=== PATIENT | male | born 1965 | race Caucasian/White ===

== ENCOUNTER → 2018-02-04 | Outpatient (REF) | payer OTHER ==
[~2018-02-04] MED LIST: AMLO-111 PO; CARV12.578 PO; DOCO1CAP17 PO; LISI-374 PO; NAPR-1043 PO; PAN40 PO; PER PO
== END ==
LOC: ZZSENDIN 10:03
PROVIDERS: ATTEND Physician Assistant
DX: Z01.818 Encounter for other preprocedural examination (principal)
CPT/HCPCS: 81001

== ENCOUNTER 2018-02-22 00:47 | Inpatient (IN) | payer OTHER ==
[~2018-02-22] VITALS: Ht 188 cm; Wt 119.7 kg
[2018-02-22] VITALS (25 sets, daily range): BP systolic 108–155; BP diastolic 72–99
[~2018-02-22 00:47] MED LIST changes: +ACET-1966 PO; +AMLO-113 PO; +GABA-549 PO
[2018-02-22] MEDS ORDERED: MIDAZOLAM 2 MG/2 ML VIAL IVP PRN (06:00)
[2018-02-22] MEDS ORDERED: NORMOSOL R SOLN(*) 1000 ML BAG 1,000 ML IV PRN (06:00)
[2018-02-22] MEDS ORDERED: FAMOTIDINE 20 MG TAB PO ONE (06:00)
[2018-02-22] MEDS ORDERED: ceFAZolin(*) 2GM/D5W 50ML 50 ML IVPB ONE (06:00)
[2018-02-22] MEDS ORDERED: PREGABALIN 150 MG CAPSULE PO ONE (06:00)
[2018-02-22] MEDS ORDERED: ACETAMINOPHEN 500 MG TAB PO ONE (06:00)
[2018-02-22] MEDS ORDERED: LIDOCAINE/SOD BICARB 8.4% SYR ID ONE (06:00)
[2018-02-22] MEDS ORDERED: ONDANSETRON 4 MG/2 ML VIAL ONE (06:18)
[2018-02-22] MEDS ORDERED: PROPOFOL EMUL(*) 10MG/ML 20 ML 20 ML ONE (06:18)
[2018-02-22] MEDS ORDERED: ROCURONIUM BROM 10 MG/ML 10 ML ONE (06:18)
[2018-02-22] MEDS ORDERED: DEXAMETHASONE SOD PHOS 10MG/ML ONE (06:18)
[2018-02-22] MEDS ORDERED: METOCLOPRAMIDE 10 MG/2 ML SDV ONE (06:18)
[2018-02-22] MEDS ORDERED: LIDOCAINE MPF 1% 5 ML VIAL ONE (06:18)
[2018-02-22] MEDS ORDERED: fentaNYL CITR 250 MCG/5 ML AMP ONE (06:21)
[2018-02-22] MEDS ORDERED: PROPOFOL(*)1000 MG/100 ML VIAL 100 ML ONE (06:26)
[2018-02-22] MEDS ORDERED: THROMBIN (BOVINE) 20,000 UNIT VIAL ONE (06:32)
[2018-02-22] MEDS ORDERED: ceFAZolin(*) 1 GM VIAL 3 GM in NS(*) 0.9% 100 ML BAG 100 ML IVPB ONE (06:45)
[2018-02-22] MEDS ORDERED: SUCCINYLCHOL CHL 200MG/10ML VL ONE (06:48)
[2018-02-22] MEDS ORDERED: LABETALOL HCL 100 MG/20ML VIAL ONE (07:15)
[2018-02-22] MEDS ORDERED: PROPOFOL EMUL(*) 10MG/ML 20 ML 40 ML ONE (08:07)
--- NOTE | 2018-02-22 09:24 | RADIOLOGY IMAGING REPORT ---
[place] [facility] [place] Yohan Schuster : 1965 MR: [id number] V: [id number] EXAM DATE: [id number] ORDERING PHYSICIAN: MAR ZARAGOZA TECHNOLOGIST: Location: [facility] [place] Patient: Yohan Schuster : 1965 Visit/Account:[id number] Date of Sevice: 02/22/2018 Technique: CERVICAL SPINE 1 VIEW HISTORY: C6-7 DISC HERNIATION/FUSION Comparison studies: MRI cervical spine January 19, 2018 FINDINGS: 2 operative fluoroscopic images were obtained of the cervical spine. Surgical instrumentat ion is seen anterior to the C6-C7 level followed by placement of an intervertebral disc spacer and fu enid hardware. Multilevel degenerative changes are again identified. Fluoroscopy time: Not provided IMPRESSION: 1. Intraoperative fluoroscopic radiographs as described above. Please see operative report for furt her details. Report Dictated By: Chris Sunshine DO at 02/22/2018 9:17 AM Report E-Signed By: Chris Sunshine DO at 02/22/2018 9:20 AM WSN:[email or web address]
[2018-02-22] MEDS ORDERED: APAP/HYDROCODONE 325/5 TAB PO PRN (09:50)
[2018-02-22] MEDS ORDERED: diphenhydrAMINE 25 MG CAP PO PRN (09:50)
[2018-02-22] MEDS ORDERED: oxyCODONE HCL 5 MG CAP PO PRN (09:50)
[2018-02-22] MEDS ORDERED: DIAZEPAM 5 MG TAB PO PRN (09:50)
[2018-02-22] MEDS ORDERED: BENZOCAINE/MENTHOL 1 EACH LOZG PO PRN (09:50)
[2018-02-22] MEDS ORDERED: ONDANSETRON 4 MG/2 ML VIAL IVP PRN (09:50)
[2018-02-22] MEDS ORDERED: ACETAMINOPHEN(*)1000 MG/100 ML 100 ML IVPB PRN (09:50)
[2018-02-22] MEDS ORDERED: ACETAMINOPHEN 500 MG TAB PO PRN (09:50)
[2018-02-22] MEDS ORDERED: LR(*) 1000 ML BAG 1,000 ML IV PRN (09:50)
[2018-02-22] MEDS ORDERED: FLUSH 10 ML SYR IVP PRN (09:50)
[2018-02-22] MEDS ORDERED: MAGNESIUM HYDROXIDE* 30ML UDCP PO PRN (09:50)
[2018-02-22] MEDS ORDERED: HYDROmorphone HCL 2 MG/ML SDV IVP PRN (09:50)
[2018-02-22] MEDS ORDERED: BISACODYL 10 MG SUPP PR PRN (09:50)
[2018-02-22] MEDS ORDERED: fentaNYL CITR 100 MCG/2 ML AMP ONE (09:55)
--- NOTE | 2018-02-22 11:18 | Hospitalist Progress Note ---
Subjective Progress Notes Subjective Patient seen post-op. Reviewed PMHx (HTN) and medications (carvedilol, amlodipine, lisinopril). At present he denies any CP/SOB/N/V. Physical Exam Vital Signs Date Time Temp Pulse Resp B/P (MAP) Pulse Ox O2 Delivery O2 Flow Rate FiO2 02/22/18 10:48 96.1 73 16 122/82 (95) 95 Nasal Cannula 3.0 General Appearance: Alert, Awake, Other (he speaks with soft/whisper voice) Cardiovascular: Regular Rate and Rhythm Respiratory: Clear to Auscultation (anteriorly) Assessment and Plan Problems: (1) HTN (hypertension) Status: Chronic Assessment & Plan: Will monitor BPs and resume his medications as needed. KARLOS CHERY MD Feb 22, 2018 11:18
--- NOTE | 2018-02-22 14:07 | OPERATIVE REPORT 1 ---
EVENT DATE: February 22, 2018 SURGEON: Delta France MD ANESTHESIOLOGIST: Ronal Renee MD ANESTHESIA: General endotracheal. COMPUTER LAB PARA PROFESSIONAL: SHERLYN Horta PREOPERATIVE DIAGNOSIS Left C7 radiculopathy with C6-C7 degenerative disk disease. POSTOPERATIVE DIAGNOSIS Left C7 radiculopathy with C6-C7 disk disease. PROCEDURE PERFORMED C6-C7 anterior cervical diskectomy and fusion IV FLUIDS 1300 cc. ESTIMATED BLOOD LOSS 60 cc. IMPLANTS USED 1. 8 mm lordotic medium titanium interbody implant from [employer]. 2. 3.5 mm x 14 mm fixation screws from [employer]. SPECIMENS None. DRAINS 10- Icelandic round Tj-Rocha drain. COMPLICATIONS None. DISPOSITION Post-Anesthesia Care Unit. INDICATIONS FOR SURGERY Mr. Schuster is a 52-year-old male who presented with a complaint of neck and radiating left upper extremity pain. The symptoms radiated into the periscapular region and then down the left posterior tricep dorsal forearm and into the index and long finger of the left hand. He also noted some occasional weakness in that left upper extremity and clumsiness in the left hand. He denied any bowel or bladder discomfort or constitutional symptoms. His physical examination was significant for positive Spurling's maneuver on the left causing radiating symptoms into the periscapular region. Triceps strength was diminished on the left as well at 4/5 compared to 5/5 on the right. All other muscle strength was 5/5 throughout. Light touch sensation was diminished in the left index and long finger and the triceps deep tendon reflex is absent on the left and 1+ on the right. His imaging studies showed multilevel degenerative changes with the most severe collapse seen at C5-C6. When we sent him for an MRI, however, it showed severe neural foraminal narrowing secondary to a large disk osteophyte complex on the left at C6-C7. Secondary to ongoing symptoms and failure of nonsurgical care, Mr. Schuster was offered and elected to undergo C6-C7 anterior cervical diskectomy and fusion. Prior to surgery, I explained in detail to the patient the possible risks of surgery. These risks include bleeding, infection, damage to surrounding structures, swallowing difficulty with possible need for tube feeding, damage to the superior or recurrent laryngeal nerve, spinal fluid leak, meningitis, , blindness, sexual dysfunction, autonomic nerve system dysfunction or other unforeseen medical and surgical complications. An understanding that in general spinal surgery is more predictive at improving extremity discomfort than axial spine pain was stressed. DESCRIPTION OF PROCEDURE On the day of surgery, the patient was met in the preoperative hold area and all questions were answered. The operative site was identified and marked by myself. After succumbing to anesthesia, the patient was positioned in the supine position on a standard OR bed. All bony protuberances and soft tissues were well padded in the standard fashion. Care was taken to maintain appropriate perfusion pressure during anesthesia. Preoperative antibiotics were administered according to the appropriate timing schedule. At the conclusion of the procedure, the sponge and needle counts were correct x2. The arms were loosely secured at the sides and the shoulders were retracted inferiorly with tape. A final time-out was undertaken by members of the operating team to confirm correct patient, correct levels and correct surgery. The patient was then prepped and draped in the standard sterile orthopedic fashion and a left sided transverse incision was made over the anterior neck. Sharp dissection was carried out down to the platysma, which was divided. Hemostasis was achieved and finger dissection was taken medial to the sternocleidomastoid muscle. The finger was used to palpate for the carotid pulse and dissection was taken medial to the carotid sheath. The anterior spine was thus exposed and soft tissues were elevated off the anterior cervical spine in a subperiosteal manner including the longus colli muscles. A lateral radiograph was obtained to confirm correct spinal level. A self-retaining retractor was placed and distracted and a microscope was brought into the field. A #15 blade was used to incise the anterior annulus of the C6-C7 disk. Progressively smaller curettes were used from ventral to dorsal to perform a diskectomy. Once we reached the dorsal third of the disk space, a Cloward procedures analyst was placed and distracted. There was no change in neurophysiologic monitoring. A combination of curettes and the high speed bur were used to take down the posterior osteophyte out to the uncovertebral joints bilaterally. Uncovertebral resection was performed as necessary with a high speed bur. A forward angled Mireille curette was used to dissect through the fibers of the posterior annulus and the PLL. The nerve hook was used to confirm complete dissection through those structures and #1 and #2 Kerrison punch was then used to take down the posterior annulus and the PLL. Bilateral foraminotomies were performed with a Kerrison punch to ensure adequate decompression of the exiting nerve roots on both sides. A nerve hook was passed behind the vertebral bodies to ensure no persistent pressure on the spinal cord and then the nerve hook was also used to check the foramina bilaterally, ensuring no ongoing foraminal narrowing. The endplates were prepared with a high speed bur, feathering the subchondral bone to ensure ingress of bony bleeding. A medium 8 mm 6-degree lordotic rasp was then tapped into place within the interspace and found to have an excellent fit. We, therefore, chose an 8-degree interbody device and after packing it with demineralized bone matrix this was tapped into place and countersunk about 0.5 mm. The awl was used through the integrated holes in the implant to then penetrate the endplates above and below. 3.5 mm x 14 mm screws were placed through the device and into the vertebral bodies of C6 and C7. A final motor was run and there was no change in neurophysiologic monitoring. Lateral radiograph confirmed excellent placement of the device. The wound was then irrigated and closed in layers using inverted interrupted sutures to the subcutaneous tissue and running subcuticular skin stitch. A drain was left deep to the platysma. Sponge and needle counts were correct x2. POSTOPERATIVE CARE PLAN Mr. Schuster will remain in the hospital overnight and will have his drain pulled in the morning and be discharged home. He will follow up with me in two weeks for wound check and examination. MORENITA
[2018-02-22] MEDS ORDERED: GABA-549 PO (15:13)
[2018-02-22] MEDS: ceFAZolin 3 GM in NS 0.9% 100 ML BAG IVPB SCH (17:15)
[2018-02-22] MEDS ORDERED: NS(*) 0.9% 250 ML BAG 250 ML IV PRN (17:20)
[2018-02-22] MEDS: DOCUSATE SODIUM 100 MG CAP PO SCH (20:57)
[2018-02-22] MEDS: GABAPENTIN 300 MG CAP PO SCH (20:57)
[2018-02-22] MEDS: CARVEDILOL 6.25 MG TAB PO SCH (20:58)
[2018-02-22] MEDS ORDERED: GABAPENTIN 300 MG CAP PO SCH (21:00)
[2018-02-23 00:32] VITALS: BP 134/74
[2018-02-23] MEDS: ceFAZolin 3 GM in NS 0.9% 100 ML BAG IVPB SCH ×2 (00:44→08:28)
[2018-02-23 05:16] VITALS: BP 127/88
--- NOTE | 2018-02-23 06:18 | Hospitalist Progress Note ---
Subjective Progress Notes Subjective He reports doing well. He is planning on DC today. Physical Exam Vital Signs Date Time Temp Pulse Resp B/P (MAP) Pulse Ox O2 Delivery O2 Flow Rate FiO2 02/23/18 05:16 98.5 101 16 127/88 (101) 91 Room Air 02/22/18 19:33 3.0 Intake and Output 02/23/18 06:59 Intake Total 4743 ml Output Total 960 ml Balance 3783 ml Intake Oral 2736 ml IV Total 2007 ml Output Urine Total 950 ml Drainage Total 10 ml # Voids 6 General Appearance: Alert, Awake Assessment and Plan Problems: (1) HTN (hypertension) Status: Chronic Assessment & Plan: He will continue his usual regimen with carvedilol, lisinopril, and amlodipine. He will monitor BPs and symptoms at home. He will contact primary care provider if any problems. Exam Sepsis Risk: No Definite Risk KARLOS CHERY MD Feb 23, 2018 06:17
[2018-02-23 07:31] VITALS: BP 173/108
[2018-02-23] MEDS ORDERED: DOCU240C84 PO (07:48)
[2018-02-23] MEDS ORDERED: LOR5/325 PO (07:49)
--- NOTE | 2018-02-23 08:22 | RADIOLOGY IMAGING REPORT ---
FACILITY: [facility] - [place] PATIENT NAME: Yohan Schuster : 1965 MR: [id number] V: [id number] EXAM DATE: ORDERING PHYSICIAN: MAR ZARAGOZA TECHNOLOGIST: Location: [facility] Patient: Yohan Schuster : 1965 Visit/Account:[id number] Date of Sevice: 02/23/2018 Exam type: CERVICAL SPINE 2 OR 3 VIEW History: Post-op Comparison: Intraoperative views of the cervical spine February 22, 2018. Findings: There are postsurgical changes from anterior fusion with intervertebral disc spacer at C6-7. There i s moderate disc space narrowing at C5-6, mild disc space narrowing at C4-5 and C3-4 and C2-3. Anteri or osteophytes are noted at C3-4 C4-5 and C5-6. There is straightening of the normal cervical lordos is. There is no evidence of prevertebral soft tissue swelling IMPRESSION: 1. Postsurgical changes from anterior fusion at C6-7 as described above Report Dictated By: Velma Moreno MD at 02/23/2018 8:15 AM Report E-Signed By: Velma Moreno MD at 02/23/2018 8:17 AM WSN:[email or web address]
[2018-02-23] MEDS: DOCUSATE SODIUM 100 MG CAP PO SCH (08:28)
[2018-02-23] MEDS: GABAPENTIN 300 MG CAP PO SCH (08:28)
[2018-02-23] MEDS: CARVEDILOL 6.25 MG TAB PO SCH (08:28)
[2018-02-23] MEDS ORDERED: amLODIPine BESYL(*) 5 MG TAB PO SCH (09:00)
[2018-02-23] MEDS ORDERED: LISINOPRIL 20 MG TAB PO SCH (09:00)
== END 2018-02-23 09:25 | disposition home or self-care (01) | DRG 473 ==
LOC: OR 00:47 → OBSVTOIN 10:45 → UNDOADMOB 10:45 → INTOOBSV 10:45 → MED 10:45 → UNDODISIN 02-23 09:25
PROVIDERS: ADMIT Orthopaedic Surgery; ATTEND Orthopaedic Surgery
PROC: 0RT30ZZ Resection of Cervical Vertebral Disc, Open Approach (ICD-10-PCS; 2018-02-22)
PROC: 0RG10A0 Fusion of Cervical Vertebral Joint with Interbody Fusion Device, Anterior Approach, Anterior Column, Open Approach (ICD-10-PCS; principal; 2018-02-22 07:11)
DX: M50.123 Cervical disc disorder at C6-C7 level with radiculopathy (principal); M25.78 Osteophyte, vertebrae; I10 Essential (primary) hypertension; F17.210 Nicotine dependence, cigarettes, uncomplicated; E78.00 Pure hypercholesterolemia, unspecified; Z86.718 Personal history of other venous thrombosis and embolism
CPT/HCPCS: 36415; 72020; 72040; 86850; 86900; 86901; 97161; C1713; J0330; J0690; J1100; J2001; J2250; J2405; J2704; J2765; J3010; J3490; J7050